=== PATIENT | male | born 1985 | race Caucasian/White ===

== ENCOUNTER 2023-05-20 15:53 | Emergency (ER) | payer MEDICARE, SELFPAY ==
[2023-05-20 16:11] VITALS: BP 121/76; PULSE 68; RESP 14; TEMP 36.6; O2SAT 98; BMI 30.4
--- NOTE | 2023-05-20 16:40 | PC.NURSE ---
Patient is extremely polite addressing staff with thank you, yes sir, yes ma'am, etc. He states he has a long history of bipolar, suicidal ideation, worthlessness as he cannot obtain a job since he lives a vegabond lifestyle with a camping backpack and walking everywhere. He has felony charge from evading police due to DUI and states this severely impacts his job applications, even bringing up that a dui charge is no longer a felony in the state that he was charged with it. He denied hurting anyone else from his actions at that time and he feels remorseful. He was dishonorably discharged from the [employer] after serving for 6 years. I thanked him for his service and pt responded I dont claim my service, I was dishonorably discharged. I responded that I am thankful for his service nonetheless. 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 Pt mentioned multiple times he was upset with the state of this country, that it is the same everywhere he has traveled. Pt was told that the [place] community was different, but pt denies this and says it is all the same. He specifically mentioned his service was unmeaningful and felt it was purposeless looking back at it. After talking for awhile patient states I'm just tired. --Tired of being alive. I have no hope, no future. Patient came to the [facility] because he had a friend he reached out to who was supposed to also be clean of alcohol and had a place for him to stay and a job he could be referred to. Pt stated the friend turned out to be a raging alcoholic and states he cant be around that type of behavior anymore, so he headed up here to sit[place]. He also mentioned all his friends were and he doesnt know anyone else to reach out to. He wants a purposeful job and cannot accomplish this with his history of felony charge and being homeless. Pt also mentioned a situation when he was inpatient in [place] for psych and that a nurse had been terrible towards him. He feels the psych healthcare in the [facility] is failing and all meant for profiting from patients. Pt is voluntary for inpatient and wants help. When asked about visual or auditory hallucinations, Pt is open about history of having horrible nightmares and sleep paralysis . He denies homicidal ideation, just mentions his time in the [employer] as service and not HI.
--- NOTE | 2023-05-20 16:55 | ED.PSYCH ---
HPI - Psych General Chief Complaint: Psychiatric Symptoms Stated Complaint: psych emergency Time Seen by Provider: 05/20/23 16:49 Source: patient Mode of arrival: Ambulatory History of Present Illness HPI Narrative: Patient is a 37-year-old male history of bipolar depression PTSD presenting today with suicidal ideations. He reports that he rode drains here from [place] to a friend in [place] who was drinking heavily. It was not a situation where he wanted to stay. He has a history of chronic ongoing suicidal ideations however he has had extreme hopelessness and today feels like he wants to jump off the bridge. He has a backpack from traveling he would leave a no on him to tell others were his backpack was. He is previously been hospitalized and cut wrist. He does take Seroquel at night. He is very polite nice and voluntary. However overall very sad. He denies any hallucinations or voices. Related Data Allergies Allergy/AdvReac Type Severity Reaction Status Date / Time chlorhexidine Allergy Swelling Verified 05/20/23 16:26 of Lip/Tongue/Throat Patient History Social History Smoking Status: Former smoker Smoking Status: Former smoker tobacco type: cigarettes alcohol intake frequency: 0-2 drinks per day Substance Use Type: marijuana Exam Initial Vital Signs Initial Vital Signs: Vital Signs Temperature 97.8 F 05/20/23 16:11 Pulse Rate 68 05/20/23 16:11 Respiratory Rate 14 05/20/23 16:11 Blood Pressure 121/76 05/20/23 16:11 Pulse Oximetry 98 05/20/23 16:11 Oxygen Delivery Method Room Air 05/20/23 16:11 GENERAL: Alert very pleasant tall 37-year-old male CARDIOVASCULAR: peripheral pulses in tact, cap refill <2 sec RESPIRATORY: No respiratory distress, speaks in full sentences without difficulty EXTREMITIES: Normal range of motion, no clubbing or edema. Neurovascularly intact NEUROLOGICAL: Cranial nerves II through XII grossly intact. Normal gait and speech. SKIN: Warm, dry, no petechiae, no rashes or lesions. Course Orders Ordered: ED Orders 05/20/23 16:27 Acetaminophen Stat Complete Blood Count AUTO DIFF Stat Comprehensive Metabolic Panel Stat Ethanol (ETOH) Stat Free T4, Direct Thyroxine Stat Salicylate Stat Thyroid Stimulating Hormone Stat Urine Drug Screen, Rapid Stat 05/20/23 16:40 Consult to SAFETY AND HEALTH CONSULTANT - Vehicle Body Sander Stat 05/20/23 16:46 COVID19 -Nasal RAPID Stat Vital Signs Vital signs: Vital Signs - 8 hr 05/20/23 16:11 Temperature 97.8 F Pulse Rate 68 Respiratory Rate 14 Blood Pressure 121/76 Pulse Oximetry 98 Oxygen Delivery Method Room Air MDM - Psych Lab Data 05/20/23 16:50 05/20/23 16:50 Labs: Lab Results 05/20/23 05/20/23 05/20/23 Range/Units 16:47 16:50 17:35 WBC 7.9 (4.5-11.0) X10^3/uL RBC 5.14 (4.5-5.9) X10^6/uL Hgb 14.8 (13.5-17.5) g/dL Hct 43.9 (41-53) % MCV 85.4 (80-100) fL MCH 28.8 (26-34) PG MCHC 33.7 (30-36) % RDW 14.3 (11.6-14.8) % Plt Count 192 (150-400) X10^3/uL Neut % (Auto) 61.2 (50-75) % Lymph % (Auto) 29.6 (25-40) % Dickinson % (Auto) 7.4 (3-14) % Eos % (Auto) 1.2 L (2-4) % Baso % (Auto) 0.6 (0-2) % Neut # (Auto) 4800 (9999-1420) /uL Lymph # (Auto) 2300 (0519-1511) /uL Dickinson # (Auto) 600 (0-900) /uL Eos # (Auto) 100 (0-450) /uL Baso # (Auto) 0 (0-100) /uL Sodium 136 L (137-145) mmol/L Potassium 3.7 (3.4-5.1) mmol/L Chloride 102 (98-107) mmol/L Carbon Dioxide 25 (22-32) mmol/L BUN 12 (9-20) mg/dL Creatinine 0.78 (0.66-1.25) mg/dL Estimated GFR > 60 (>60) mL/min BUN/Creatinine Ratio 15.4 (6-22) Glucose 93 (70-100) mg/dL Calcium 9.5 (8.4-10.2) mg/dL Total Bilirubin 0.8 (0.2-1.3) mg/dL AST 25 (17-59) IU/L ALT 22 (<50) IU/L Alkaline Phosphatase 102 (38-126) U/L Total Protein 7.7 (6.3-8.2) g/dL Albumin 4.4 (3.5-5.0) g/dL Globulin 3.3 (1.7-4.1) g/dL Albumin/Globulin Ratio 1.3 (1.0-2.8) TSH 0.700 (0.47-4.68) uIU/mL Free T4 1.31 (0.78-2.19) ng/dL Salicylates < 1.0 (<20) mg/dL U Opiates 300ng/mL cut Negative (Negative) Ur Oxycodone Screen Negative (Negative) Urine Methadone Screen Negative (Negative) Acetaminophen < 10 (10-30) ug/mL Ur Barbiturates Screen Negative (Negative) U Tricyclic Antidepress Negative (Negative) Ur Phencyclidine Scrn Negative (Negative) Ur Amphetamines Screen Negative (Negative) U Methamphetamines Scrn Negative (Negative) Ur MDMA Scrn (Ecstasy) Negative (Negative) U Benzodiazepines Scrn Negative (Negative) Urine Cocaine Screen Negative (Negative) U Marijuana (THC) Screen Positive H (Negative) Ethyl Alcohol < 10 ( - 10) mg/dL SARS-CoV-2 (PCR) Negative (Negative) Urine Dip Bedside Urine Glucose Negative Bedside Urine Bilirubin - Negative Bedside Urine Ketone + 15 Urine Specific [place] 1.015 Bedside Urine Occult Blood - Negative Bedside Urine pH 6.0 Bedside Urine Protein - Negative Bedside Urine Urobilinogen - Negative Bedside Urine Nitrite - Negative Bedside Urine Leukocytes - Negative Esterase MDM Narrative Medical decision making narrative: Alert very pleasant 37-year-old male with significant mental health issues including bipolar depression PTSD chronic suicidal ideation with worsening thoughts of suicidal ideation. Presenting today voluntarily wanting placement. He is high-risk with plan. He is given a shower Patient signed out to Dr. Govea Discharge Plan Departure Patient Disposition: Xfer Psychiatric Hosp Clinical Impression: Suicidal ideation
[2023-05-20 17:05] LABS: Add Manual Diff / Slide Review NO; Basophils Absolute Auto 0 /uL (0-100); Basophils Percent Auto 0.6 % (0-2); Eosinophils Absolute Auto 100 /uL (0-450); Eosinophils Percent Auto 1.2 % (2-4); Hematocrit 43.9 % (41-53); Hemoglobin 14.8 g/dL (13.5-17.5); Lymphocytes Absolute Auto 2300 /uL (1100-4500); Lymphocytes Percent Auto 29.6 % (25-40); Mean Corpuscular HGB Conc 33.7 % (30-36); Mean Corpuscular Hemoglobin 28.8 PG (26-34); Mean Corpuscular Volume 85.4 fL (80-100); Monocytes Absolute Auto 600 /uL (0-900); Monocytes Percent Auto 7.4 % (3-14); Neutrophils Absolute Auto 4800 /uL (1500-7000); Neutrophils Percent Auto 61.2 % (50-75); Platelet Count 192 X10^3/uL (150-400); Red Blood Cell Count 5.14 X10^6/uL (4.5-5.9); Red Cell Distribution Width 14.3 % (11.6-14.8); White Blood Cell Count 7.9 X10^3/uL (4.5-11.0)
[2023-05-20 17:14] LABS: Acetaminophen < 10 ug/mL (10-30); Alanine Aminotransferase 22 IU/L (<50); Albumin 4.4 g/dL (3.5-5.0); Albumin Globulin Ratio 1.3 (1.0-2.8); Alkaline Phosphatase 102 U/L (38-126); Aspartate Aminotransferase 25 IU/L (17-59); BUN Creatinine Ratio 15.4 (6-22); Bilirubin Total 0.8 mg/dL (0.2-1.3); Blood Urea Nitrogen 12 mg/dL (9-20); Calcium 9.5 mg/dL (8.4-10.2); Carbon Dioxide 25 mmol/L (22-32); Chloride 102 mmol/L (98-107); Estimated Glomerular Filt Rate > 60 mL/min (>60); Ethanol (ETOH) < 10 mg/dL; Globulin 3.3 g/dL (1.7-4.1); Glucose 93 mg/dL (70-100); HEMOLYSIS < 15 (0-50); Potassium 3.7 mmol/L (3.4-5.1); Salicylate < 1.0 mg/dL (<20); Sodium 136 mmol/L (137-145); Total Protein 7.7 g/dL (6.3-8.2)
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
[2023-05-20 17:30] LABS: Free T4, Direct Thyroxine 1.31 ng/dL (0.78-2.19)
--- NOTE | 2023-05-20 17:31 | PC.NURSE ---
Pt shower area was cleared of any objects which pt could use to cause self harm. Pt was cooperative and was ambulated to bathroom. Sitter is outside of bathroom which remains unlocked.
--- NOTE | 2023-05-20 17:35 | PC.NURSE ---
Patient states he has been walking/bussing for days traveling from [place] up to [place] where he has been for the past few days. He states he last took a bath at [facility]. I asked patient if he adhered to our rules for using the bathroom (the door remaining unlocked at all times and communication whenever we knock on the door). Provider okayed for patient to shower. Patient was thankful for the shower and was given toothbrush and toothpaste, deodorant, shampoo/body wash, clean scrubs. His bed sheets were changed also. Patient remains calm and cooperative. He is polite and respectful towards staff. Sitter remained outside bathroom door while pt showered.
[2023-05-20 17:50] LABS: COVID19 -Nasal RAPID Negative (Negative)
[2023-05-20 18:07] LABS: UR Morphine/Opiate cutoff 300 Negative (Negative); Ur Creatinine Normal (Normal); Ur Specific Gravity Normal (Normal); Urine Amphetamines Negative (Negative); Urine Barbiturates Negative (Negative); Urine Benzodiazepines Negative (Negative); Urine Cocaine Negative (Negative); Urine MDMA Negative (Negative); Urine Methadone Negative (Negative); Urine Methamphetamines Negative (Negative); Urine Oxycodone Negative (Negative); Urine Phencyclidine Negative (Negative); Urine Tetrahydrocannabinol Positive (Negative); Urine Tricyclic Antidepressant Negative (Negative); Urine pH Normal (Normal)
--- NOTE | 2023-05-20 18:47 | CM.SWNOTE ---
OUTER DIAMETER GRINDER Note OUTER DIAMETER GRINDER calls [facility] intake, it is reported that they have beds and can review patient. Insurance pre-auth is not required due to patient's straight Medicare insurance. OUTER DIAMETER GRINDER faxes clinicals for review. [facility] intake Candice states they can accept patient, accepting provider is MINH Garcia, patient can arrive at or after 2130. Nurse to Nurse Ph. # [phone]. OUTER DIAMETER GRINDER reviews this with patient and patient indicates agreement and understanding. OUTER DIAMETER GRINDER calls [facility] and schedules BLS transport for 2100 belt picker, OUTER DIAMETER GRINDER calls [facility] regarding transport time. Plan: patient to transfer to [facility] unit via BLS this evening for voluntary inpatient hospitalization. Lynsey Osborne, DIRECTOR MEDICAL ECONOMICS
--- NOTE | 2023-05-20 19:03 | PC.NURSE ---
At 1900 this conventional mortgage underwriter got report from previous sitter. Patient is lying in bed and within this writers view.
--- NOTE | 2023-05-20 19:49 | PC.NURSE ---
pt resting in gurney with eyes shut, breathing even and unlabored. Sitter 1:1 present.
[2023-05-20 20:57] VITALS: BP 98/53; PULSE 75; RESP 17; TEMP 36.5; O2SAT 99
--- NOTE | 2023-05-20 21:09 | PC.NURSE ---
This nurse called [facility] and gave report to Markos DUMONT [phone]. Report also given to Newton GILLIAM [facility].
== END 2023-05-20 21:11 ==
PROVIDERS: Emergency Provider Emergency Medicine
DX: R45.851 Suicidal ideations (principal); Z20.822 Contact with and (suspected) exposure to COVID-19
CPT/HCPCS: 80053; 80305; 80320; 80329; 81003; 84439; 84443; 85025; 87635; 99284; C9803; G0480